=== PATIENT | female | born 1975 | race Caucasian/White ===

== ENCOUNTER 2016-04-23 13:26 | Emergency (ER) | payer OTHER ==
[~2016-04-23] VITALS: Ht 175.3 cm; Wt 72.6 kg
[~2016-04-23 13:26] MED LIST: ADVAIR 250-501 EACH INH; BUPROPION XL300 MG ORAL; DEXPAK1.5 M1 PO; FLEXERIL10 MG PO; HYDROCODON-ACE1 EA15 PO; LUNESTA2 MG ORAL; MEDROL DOSEPAK4 MG ORAL; OXYCODONE HCL5 M2; PERCOCET1 TAB ORAL; PROAIR HFA8.5 GM INH; SOMA350 MG; VALIUM5 MG ORAL; VICODIN 5-5001 EACH PO; hydrocodone; oxycodone; soma
[2016-04-23] MEDS ORDERED: Metoclopramide 10mg/2ml Inj IVP ONE (14:00)
[2016-04-23] MEDS ORDERED: Morphine Sulfate 4mg/ml Inj IVP ONE (14:00)
[2016-04-23 14:09] VITALS: BP 114/98
--- NOTE | 2016-04-23 14:32 | Emergency Room Report ---
History of Present Illness General Chief Complaint: Headache Source: Patient Present Illness HPI 40 YO F with left occipital headache. Patient states she has had headache in that area off/on for 2 days since bumping it on cabinet in her kitchen. She was self-medicating with ibuprofen. However today at [facility], she had a "thoracic block" for upcoming ablation of nerves d/t chronic known C-spine nerve impingent issues. Patient states left sided headache got worse when she got home after the procedure. At the time of the trauma, denies LOC, blurry/ change of vision, nausea/vomiting. Currently also denies the same. She also drank 2 cups of coffee to see if that would help as well. Allergies: Coded Allergies: PENICILLINS (Verified Allergy, Rash, 06/15/12) itching and hives Patient History Past Medical History: none Past Surgical History: other - sigtnificant. See EMR Pertinent Family History: none Social History: Denies: alcohol use, drug use, smoking Last Menstrual Period: last month Now: No Immunizations: UTD Reviewed Nursing Documentation: PMH: Agreed, PSxH: Agreed Nursing Documentation-PMH Past Medical History: No History, Except For Hx Cardiac Problems: No Hx Hypertension: No Hx Pacemaker: No Hx Asthma: Yes Hx COPD: No Hx Diabetes: No Hx Cancer: No Hx Gastrointestinal Problems: Yes - ACID REFLUX, DYSPHAGIA Hx Dialysis: No Hx Neurological Problems: Yes - SPINAL SURGERY 2013 Hx Cerebrovascular Accident: No Hx Seizures: No Hx Dizziness: Yes Hx Numbness: Yes - LEFT ARM Hx Weakness: Yes - LEFT ARM Review of Systems All Other Systems: negative except mentioned in HPI Physical Exam Vital Signs Date Time Temp Pulse Resp B/P Pulse Ox O2 Delivery O2 Flow Rate FiO2 04/23/16 13:40 98.2 79 18 130/89 98 Room Air Sp02 EP Interpretation: reviewed, normal General Appearance: normal inspection, well appearing, no apparent distress, alert, GCS 15, non-toxic Head: normocephalic, atraumatic, other - No hematoma, abrasion, laceration or other trauma to occiput Eyes: bilateral eye EOMI, bilateral eye PERRL ENT: normal ENT inspection, hearing grossly normal, normal voice Neck: normal inspection, full range of motion, supple, thyroid normal, no meningismus, no bony tend Respiratory: normal inspection, lungs clear, normal breath sounds, no rhonchi, no respiratory distress, no retraction, no accessory muscle use, no wheezing Cardiovascular #1: regular rate, rhythm, no edema Gastrointestinal: normal inspection, normal bowel sounds, non tender, soft, no guarding, no hernia Genitourinary: no CVA tenderness Musculoskeletal: normal inspection, back normal, normal range of motion, non- tender, Luis's Sign negative, other - Bandage over upper thorax, no palpable hematoma or mass or sign of infection Neurologic: normal inspection, alert, oriented x3, responsive, artificial pearl maker III-XII nml as tested, motor strength/tone normal, DTRs symmetric, speech normal Psychiatric: normal inspection, judgement/insight normal, mood/affect normal Skin: normal inspection, normal color, no rash Lymphatic: normal inspection Medical Decision Making Diagnostic Impression: Primary Impression: Headache Qualified Codes: G44.229 - Chronic tension-type headache, not intractable ER Course 40 YO F with intermittent headache for 2 days, worse now s/p thoracic spine block. VSS. Afebrile. No acute neuro focal deficits. Atraumatic. Likely tension vs migraine headache No meningismus. Low suspicion for SAH or ICH from trauma Improved after IV NS hydration, reglan, morphine Reevaluation Time: 16:05 Last Vital Signs Date Time Temp Pulse Resp B/P Pulse Ox O2 Delivery O2 Flow Rate FiO2 04/23/16 14:09 85 16 114/98 96 Room Air 04/23/16 13:40 98.2 Status: improved Reevaluation Impression patient refused IVF NS hydration Developed rash to left side of face from morphine, resolved with IV Benadryl Feels much better now s/p medication No sign of iatrogenic hematoma or infection Will f/up with PMD/pain academic program specialist Disposition: HOME, SELF-CARE Referrals: NON PHYSICIAN (PCP) GABRIELLA PANTOJA M.D. Apr 23, 2016 14:32
[2016-04-23 15:15] VITALS: BP 115/65
[2016-04-23] MEDS ORDERED: DiphenhydrAMINE 50mg/ml Inj IVP ONE (15:45)
[2016-04-23 16:02] VITALS: BP 117/69
[2016-04-23 16:06] VITALS: BP 115/65
== END 2016-04-23 16:06 | disposition home or self-care (01) ==
LOC: EMR 14:05
DX: G44.229 Chronic tension-type headache, not intractable (principal); K21.9 Gastro-esophageal reflux disease without esophagitis; J45.909 Unspecified asthma, uncomplicated; Z88.0 Allergy status to penicillin
CPT/HCPCS: 96374; 96375; 99284; J2270; J2765